=== PATIENT | female | born 1970 ===

== ENCOUNTER 2018-07-19 11:42 | Outpatient (CLI) | payer OTHER ==
[~2018-07-19] VITALS: Ht 167.6 cm; Wt 73.5 kg
== END 2018-07-19 12:00 | disposition home or self-care (01) ==
LOC: OFIC 805 11:42
DX: H93.12 Tinnitus, left ear (principal); H91.8X3 Other specified hearing loss, bilateral; H61.21 Impacted cerumen, right ear